=== PATIENT | female | born 1970 ===

== ENCOUNTER 2022-01-14 09:26 | Outpatient (CLI) | payer OTHER | END 2022-01-14 09:28 | disposition home or self-care (01) | LOC: SONOGRAMA 09:26 | PROVIDERS: ATTEND Obstetrics & Gynecology | DX: N89.0 Mild vaginal dysplasia (principal) ==

== ENCOUNTER 2022-05-30 07:10 | Day surgery (SDC) | payer OTHER ==
[~2022-05-30] VITALS: Ht 160 cm; Wt 70.3 kg
[~2022-05-30 07:10] MED LIST: LEVOTHYROXINE25 MCG PO; TOPROL XL25 M1 PO
== END 2022-05-30 16:15 | disposition home or self-care (01) ==
LOC: CIR.AMB 07:10
PROVIDERS: ATTEND Obstetrics & Gynecology
DX: N84.0 Polyp of corpus uteri (principal); Z20.822 Contact with and (suspected) exposure to COVID-19; Z88.2 Allergy status to sulfonamides; Z86.16 Personal history of COVID-19